=== PATIENT | male | born 1985 | race Caucasian/White ===

== ENCOUNTER 2023-04-02 15:48 | Emergency (ER) | payer OTHER ==
[2023-04-02] MEDS ORDERED: Acetaminophen 500 MG TAB ONE (16:25)
[2023-04-02] MEDS ORDERED: Ibuprofen 200 MG TAB ONE ×2 (16:26→16:43)
[2023-04-02] MEDS ORDERED: Dexamethasone 10 MG/ML VIAL ONE (16:43)
[2023-04-02] MEDS ORDERED: Meclizine HCl 25 MG TAB ONE (16:53)
== END 2023-04-02 19:04 | disposition home or self-care (01) ==
LOC: CSHERS 15:48
DX: J02.0 Streptococcal pharyngitis (principal); B34.9 Viral infection, unspecified; R42 Dizziness and giddiness
CPT/HCPCS: 87430; 99283; J1100